=== PATIENT | male | born 2000 | race Hispanic/Latino ===

== ENCOUNTER 2024-10-30 12:14 | Emergency (ER) | payer OTHER ==
[~2024-10-30] VITALS: Ht 170.2 cm; Wt 108.9 kg
[2024-10-30 12:48] LABS: IMMATURE GRANULOCYTE ABSOLUTE 0.07 K/uL (0-1); NUCLEATED RED BLOOD CELLS 0.0 % (0.0-0.19); PLATELET COUNT (AUTO) 246 K/uL (130-400); RED BLOOD CELL COUNT(AUTO) 5.25 MIL/uL (4.50-6.20); RED CELL DISTRIBUTION WIDTH 12.3 % (11.0-15.5); WHITE BLOOD COUNT (AUTO) 8.8 K/uL (4.8-10.8)
[2024-10-30 12:56] LABS: CREATININE 1.3 mg/dL (0.5-1.3); GLOMERULAR FILTR. RATE CALC 79.0 mL/min (>90); GLUCOSE,RANDOM 112.0 mg/dL (70-105); SODIUM SERUM 136.0 mmol/L (136-145); UREA NITROGEN, BLOOD 15.0 mg/dL (7-18)
[2024-10-30] MEDS: FAMOTIDINE 20MG VIAL IV ONE (12:58)
[2024-10-30] MEDS: 0.9%NACL 1000ML 1,000 ML IV STA (12:58)
[2024-10-30 13:01] LABS: ASPARTATE AMINOTRANSFERASE 40.0 U/L (10-37); TOTAL PROTEIN, SERUM 8.1 g/dL (6.0-8.3)
[2024-10-30] MEDS ORDERED: IOHEXOL-350 75 ML VIAL IV ONE (13:02)
--- NOTE | 2024-10-30 14:02 | HMCIMG ---
EXAM: CT Abdomen and Pelvis with IV contrast CLINICAL HISTORY: LLQ, n/v, diarrhea TECHNIQUE: Axial computed tomography images of the abdomen and pelvis with intravenous contrast. CONTRAST: with intravenous contrast. COMPARISON: None provided. FINDINGS: LUNG BASES: The lung bases appear clear. No pleural effusions are seen. LIVER: Enlarged liver with diffuse fatty infiltration. GALLBLADDER AND BILE DUCTS: The gallbladder appears within normal limits. No radioopaque gallstones are seen. No biliary ductal dilatation is evident. PANCREAS: Unremarkable. SPLEEN: Enlarged spleen, measuring 14.8 cm. ADRENAL GLANDS: Unremarkable. KIDNEYS, URETERS, AND BLADDER: 3 mm stone in the left distal ureter with mild left hydroureteronephrosis and a delayed nephrogram in the left kidney. Normal right kidney. No right hydronephrosis. STOMACH AND BOWEL: No bowel obstruction or inflammation. APPENDIX: Normal appendix. PERITONEUM: No free fluid. No free air. LYMPH NODES: No lymphadenopathy is evident. REPRODUCTIVE: Unremarkable as visualized. VASCULATURE: No evidence of abdominal aortic aneurysm. BONES: No aggressive appearing osseous lesion. No acute osseous pathology evident. IMPRESSION: 1. 3 mm stone in the left distal ureter with mild left hydroureteronephrosis and a delayed nephrogram in the left kidney. 2. Normal right kidney. No right hydronephrosis. 3. No bowel obstruction or inflammation. Normal appendix. 4. Hepatosplenomegaly with fatty infiltration of the liver. /[place]
[2024-10-30 15:03] LABS: ADD UA MICROSCOPIC YES; APPEARANCE,URINE CLEAR (CLEAR); GLUCOSE, URINE (UA) NEGATIVE (NEGATIVE); LEUKOCYTE ESTERASE ,URINE NEGATIVE Leu/uL (NEGATIVE); NITRATE,URINE NEGATIVE (NEGATIVE); OCCULT BLOOD,URINE SMALL (NEGATIVE)
[2024-10-30 15:05] LABS: SQUAMOUS EPITHELIAL CELL,UR RARE /HPF (0-2)
[2024-10-30] MEDS ORDERED: TAMS-55 PO (15:32)
[2024-10-30] MEDS ORDERED: KETO10TA2 PO (15:32)
--- NOTE | 2024-10-30 15:32 | ERN ---
ED Note History of Present Illness Stated Complaint: ABD PAIN Chief Complaint: Nausea,Vomiting,Diarrhea Time Seen by MD: 12:17 Time Seen by Midlevel: 12:18 Dictation: 24-year-old male coming in with complaining of left lower quadrant pain onset Thursday. Patient states he has had nausea and vomiting about 9 x 2 retained Thursday and today. No blood. Denies any blood in his stool, states he has had three loose stools today no blood. Patient also states he has started Ozempic on Thursday. And then had alcoholic beverages on Thursday. Allergies: Coded Allergies: No Known Drug Allergies (Unverified Allergy, Unknown, 10/30/24) Past Medical History Past Medical History: No Pertinent History Surgical History: None Review of System Dictation Constitutional: Negative for fever,chills, and weight loss Eyes: Negative for injury, pain,redness, and discharge ENT: Negative for injury,pain or swelling Cardiovascular: Negative for chest pain, palpitations, and edema Respiratory: Negative for shortness of breath, cough, and wheezing, Abdomen/GI: Positive for abdominal pain, nausea vomiting Back: Negative for injury and pain : Negative for injury, bleeding and discharge MS/Extremity: Negative for injury and deformity Skin: Negative for rash, and discoloration Neuro: Negative for headache, weakness, numbness, tingling, and seizure Psych: Negative for suicide ideation, homicidal ideation, and hallucinations Review of Systems: was completed Initial Vital Sign VS Vital Signs Date Time Temp Pulse Resp B/P (MAP) Pulse Ox O2 Delivery O2 Flow Rate FiO2 10/30/24 12:16 98.4 51 22 110/66 97 Room Air 0 Physical Exam Dictation General: awake, alert, NAD Head/Face: Normocephalic, atraumatic Eyes: PERRL, EOMI, vision at baseline ENT: oral cavity clear, TMs clear, no signs of infection Neck: Trachea midline, supple, no nuchal rigidity Cardiovascular: RRR, normal S1/S2, No MRGs, no JVD Respiratory: CTAB, no respiratory distress, No rales or wheezes Abdomen: Soft, non-tender, non-distended, normal bowel sounds, no guarding or rebound., no CVA tenderness Skin: Warm, dry, normal turgor, no rash MS/Extremity: Pulses equal, no cyanosis, neurovascular intact, FROM Neuro: COAx4, GCS 15, strength 5/5, CN 2-12 intact, normal cerebellar exam, normal gait, Psych: Normal behavior, mood, and affect normal Results (Laboratory/Radiology) Laboratory/Radiology Laboratory Tests Test 10/30/24 12:35 10/30/24 14:48 White Blood Count 8.8 K/uL (4.8-10.8) Red Blood Count 5.25 MIL/uL (4.50-6.20) Hemoglobin 14.4 g/dL (14.0-18.0) Hematocrit 43.5 % (42-54) Mean Corpuscular Volume 82.9 fL (79-99) Mean Corpuscular Hemoglobin 27.4 pg (27.0-33.0) Mean Corpuscular Hemoglobin Concent 33.1 g/dL (32.0-36.0) Red Cell Distribution Width 12.3 % (11.0-15.5) Platelet Count 246 K/uL (130-400) Mean Platelet Volume 10.3 fL (7.5-10.5) Immature Granulocyte % (Auto) 0.8 % (0-1) Neutrophils (%) (Auto) 59.4 % (40.0-77.0) Lymphocytes (%) (Auto) 30.8 % (21.0-51.0) Monocytes (%) (Auto) 7.9 % (3.0-13.0) Eosinophils (%) (Auto) 0.9 % (0.0-8.0) Basophils (%) (Auto) 0.2 % (0.0-5.0) Neutrophils # (Auto) 5.3 K/uL (1.8-7.7) Lymphocytes # (Auto) 2.7 K/uL (1.0-4.8) Monocytes # (Auto) 0.7 K/uL (0.1-1.0) Eosinophils # (Auto) 0.08 K/uL (0.00-0.70) Basophils # (Auto) 0.02 K/uL (0.00-0.20) Absolute Immature Granulocyte (auto 0.07 K/uL (0-1) Nucleated Red Blood Cells 0.0 % (0.0-0.19) Sodium Level 136 mmol/L (136-145) Potassium Level 3.6 mmol/L (3.5-5.1) Chloride Level 98 mmol/L (101-111) L Carbon Dioxide Level 31 mmol/L (21-32) Blood Urea Nitrogen 15 mg/dL (7-18) Creatinine 1.3 mg/dL (0.5-1.3) Glomerular Filtration Rate Calc 79 mL/min (>90) Random Glucose 112 mg/dL (70-105) H Total Calcium 9.3 mg/dL (8.5-10.1) Total Bilirubin 0.6 mg/dL (0.2-1.0) Direct Bilirubin 0.1 mg/dL (0.0-0.3) Aspartate Amino Transf (AST/SGOT) 40 U/L (10-37) H Alanine Aminotransferase (ALT/SGPT) 93 U/L (12-78) H Alkaline Phosphatase 66 U/L (50-136) Total Protein 8.1 g/dL (6.0-8.3) Albumin 4.1 g/dL (3.5-5.0) Lipase 39 U/L (16-77) Urine Color LIGHT-YELLOW (YELLOW) Urine Appearance CLEAR (CLEAR) Urine pH 6.0 (5.0-8.0) Urine Specific [place] OVER (1.001-1.031) Urine Protein NEGATIVE mg/dL (NEGATIVE) Urine Glucose (UA) NEGATIVE mg/dL (NEGATIVE) Urine Ketones 5 mg/dL (NEGATIVE) H Urine Occult Blood SMALL (NEGATIVE) H Urine Nitrate NEGATIVE (NEGATIVE) Urine Bilirubin NEGATIVE mg/dL (NEGATIVE) Urine Urobilinogen 0.2 mg/dL (0.2-1.0) Urine Leukocyte Esterase NEGATIVE Boris/uL Urine RBC 2-5 /HPF (0-1) H Urine WBC 2-5 /HPF (0-1) H Urine Squamous Epithelial Cells RARE /HPF (0-2) Urine Bacteria RARE /HPF (None Seen) Labs Reviewed?: Yes CT Scan Comment: [place] [id number] [place] [id number] IMAGING REPORT Signed PATIENT: ANAYELI MELENDEZ MR#: [id number] : 2000 SEX: M AGE: 24 LOCATION: [facility] ORDER 1222 STATUS: REG REPORT#: [id number] SERVICE 1220 REASON: LLQ, n/v, diarrhea ORDERING PHYSICIAN: HAM LOVE NP PROCEDURE: ABD PEL W - CT ABDOMEN/PELVIS W/CONTRAST EXAM: CT Abdomen and Pelvis with IV contrast CLINICAL HISTORY: LLQ, n/v, diarrhea TECHNIQUE: Axial computed tomography images of the abdomen and pelvis with intravenous contrast. CONTRAST: with intravenous contrast. COMPARISON: None provided. FINDINGS: LUNG BASES: The lung bases appear clear. No pleural effusions are seen. LIVER: Enlarged liver with diffuse fatty infiltration. GALLBLADDER AND BILE DUCTS: The gallbladder appears within normal limits. No radioopaque gallstones are seen. No biliary ductal dilatation is evident. PANCREAS: Unremarkable. SPLEEN: Enlarged spleen, measuring 14.8 cm. ADRENAL GLANDS: Unremarkable. KIDNEYS, URETERS, AND BLADDER: 3 mm stone in the left distal ureter with mild left hydroureteronephrosis and a delayed nephrogram in the left kidney. Normal right kidney. No right hydronephrosis. STOMACH AND BOWEL: No bowel obstruction or inflammation. APPENDIX: Normal appendix. PERITONEUM: No free fluid. No free air. LYMPH NODES: No lymphadenopathy is evident. REPRODUCTIVE: Unremarkable as visualized. VASCULATURE: No evidence of abdominal aortic aneurysm. BONES: No aggressive appearing osseous lesion. No acute osseous pathology evident. IMPRESSION: 1. 3 mm stone in the left distal ureter with mild left hydroureteronephrosis and a delayed nephrogram in the left kidney. 2. Normal right kidney. No right hydronephrosis. 3. No bowel obstruction or inflammation. Normal appendix. 4. Hepatosplenomegaly with fatty infiltration of the liver. /[place] DICTATED BY: NADIA DAVILA MD DATE: 10/30/241500 ELECTRONICALLY SIGNED BY: NADIA DAVILA MD DATE: 10/30/24 150 ED Course ED Course Orders Procedure Category Date Status Time Cbc With Differential LAB 10/30/24 Complete 12:20 Basic Metabolic Panel LAB 10/30/24 Complete 12:20 Lipase LAB 10/30/24 Complete 12:20 Hepatic Function Panel LAB 10/30/24 Complete 12:20 Ct Abdomen/Pelvis CT 10/30/24 Resulted W/Contrast 12:20 0.9%Nacl 1000ml (Ns PHA 10/30/24 Complete 1000ml) 12:20 Ondansetron 4mg Inj PHA 10/30/24 Complete (Zofran 4mg Inj) 12:30 Famotidine 20mg Vial PHA 10/30/24 Complete (Pepcid 20mg Vial) 12:30 Ketorolac PHA 10/30/24 Complete Tromethamine 15mg/Ml 12:30 Iohexol (Omnipaque) PHA 10/30/24 Complete 13:02 Urinalysis Profile LAB 10/30/24 Complete 14:13 Current Medications Medications (Trade) Dose Ordered Sig/Dusty Route PRN Reason Start Time Stop Time Status Last Admin Dose Admin Famotidine (Pepcid 20mg Vial) 20 mg ONCE ONCE IV 10/30/24 12:30 10/30/24 12:31 DC 10/30/24 12:58 Iohexol (Omnipaque) 75 ml STK-MED ONCE IV 10/30/24 13:02 10/30/24 13:02 DC Ketorolac Tromethamine (toRADol) 15 mg ONCE ONCE IV 10/30/24 12:30 10/30/24 12:31 DC 10/30/24 12:59 Ondansetron HCl (zoFRAN 4MG INJ) 4 mg ONCE ONCE IVP 10/30/24 12:30 10/30/24 12:31 DC 10/30/24 12:58 Sodium Chloride 1,000 ml @ 1,000 mls/hr Q1H STAT IV 10/30/24 12:20 10/30/24 13:19 DC 10/30/24 12:58 Vital Signs Date Time Temp Pulse Resp B/P (MAP) Pulse Ox O2 Delivery O2 Flow Rate FiO2 10/30/24 12:16 98.4 51 22 110/66 97 Room Air 0 Medical Decision Making MDM MDM: 24-year-old male coming in with complaining of left lower quadrant pain onset Thursday. Patient states he has had nausea and vomiting about 9 x 2 retained Thursday and today. No blood. Denies any blood in his stool, states he has had three loose stools today no blood. Patient also states he has started Ozempic on Thursday. And then had alcoholic beverages on Thursday.CBC shows a leukocytosis, no anemia, no thrombocytopenia. Chemistry unremarkable. Kidney function within normal range. UA shows small amount of blood in the urine and no bacteria. CT scan reads a 3 mm stone in the left distal ureter with mild left hydroureteronephrosis, normal right kidney. No bowel obstruction or inflammation. Normal appendix. Patient will be discharged on Flomax and some pain medication, educated patient to return to the hospital if he develops any fevers or unable to urinate. Otherwise follow up with PCP and or with the specialist. Differential diagnosis: Nephrolithiasis, urinary tract infection, gastroenteritis, medication side effects Rationale: Tests considered and ordered secondary to shared decision making include: Previous outside records reviewed: Old ER visits. Risk of complication and/or morbidity or mortality of patient management: None Medications-Per medication reconciliation Need for hospitalization: Patient does not meet criteria for hospitalization. Need for emergency major/minor surgery: No There are no social concerns with this patient. Prescription drug management Prescriptions will include symptomatic care Patient's prior external medical records from other ER visits were reviewed by me as indicated. Prior testing and results from previous visits were reviewed. Prior tests were taken into account with medical decision making and resource utilization, independent historian/historians were used to obtain complete medical history. I independently interpreted the test that were performed, results were reviewed by me and considered findings on radiology if ordered. Medical management and examination interpretation discussions were had by me with other qualified healthcare professionals as indicated for the patient's care. DX & DISP Disposition: Discharge Departure Impression: Primary Impression: Ureterolithiasis Condition: Stable Scripts Ketorolac Tromethamine (Ketorolac Tromethamine) 10 Mg Tablet 1 TAB PO Q6HPRN PRN for pain for 3 Days, #12 TAB 0 Refills Prov: HAM LOVE NP 10/30/24 Tamsulosin HCl (Flomax) 0.4 Mg Cap.er.24h 1 CAP PO DAILY for 30 Days, #30 CAP 0 Refills Prov: HAM LOVE [employer] 10/30/24 Additional Instructions: You have a kidney stone in the left ureter. Need to take the medication as prescribed and pain medication. Stay hydrated. Follow up with your PCP and or with a specialist. Also if you develop any fevers, nausea vomiting return back to the ER. Referrals: SELF,REFERRAL (PCP) Time of Disposition: 15:29 I have reviewed the case, and I agree with, Diagnosis and Plan HAM LOVE NP Oct 30, 2024 15:32
[2024-10-30 15:43] VITALS: BP 112/65; PULSE 60; RESP 18; TEMP 98.5; O2SAT 100
== END 2024-10-30 15:54 | disposition home or self-care (01) ==
LOC: EDH 12:14
DX: N13.2 Hydronephrosis with renal and ureteral calculous obstruction (principal)
CPT/HCPCS: 99285; 74177; 96374; 96375; 96361; 80076; 80048; 83690; 85025; 81001; 36415; J1885; J3490; J7030; J2405; Q9967